=== PATIENT | female | born 1995 | race Caucasian/White ===

== ENCOUNTER 2020-10-19 03:53 | Emergency (ER) | payer OTHER ==
[~2020-10-19] VITALS: Ht 160 cm; Wt 79.4 kg
[2020-10-19 03:58] VITALS: BP 122/80
--- NOTE | 2020-10-19 03:58 | NUR ---
to bed ambulatory
--- NOTE | 2020-10-19 04:03 | NUR ---
Rachel islas in [facility] - 10/19/20 at 0403 by ROSIE PT TAKEN TO BED 11
--- NOTE | 2020-10-19 04:14 | NUR ---
EKG PERFORMED AT BEDSIDE. EKG READS SINUS RHYTHM @ 70
--- NOTE | 2020-10-19 04:14 | NUR ---
EMT AT BEDSIDE DOING EKG
--- NOTE | 2020-10-19 04:20 | NUR ---
25/F BIB SELD COMPLAINING OF GENERALIZED WEAKNESS, SHAKINESS, AND FEELING OF ABOUT TO FAINT. PT VERBALIZED SHE IS . LPM 09/04. PT AAOX4, NO S/SX OF DISTRESS. PT DENIES ANY N/V/D, HEADACHE/DIZZINESS. PT CONNECTED TO MONITORS. DENIES PMH ALLERGY: GERI
--- NOTE | 2020-10-19 04:43 | NUR ---
URINE SAMPLE SEND TO LAB
[2020-10-19 04:48] LABS: APPEARANCE,URINE CLEAR (CLEAR); BILIRUBIN,URINE NEGATIVE (NEGATIVE); BLOOD, URINE NEGATIVE (NEGATIVE); COLOR,URINE YELLOW (YELLOW); LEUKOCYTE ESTERASE ,URINE NEGATIVE (NEGATIVE); NITRITE, URINE NEGATIVE (NEGATIVE); UGLUCOSE NEGATIVE (NEGATIVE)
[2020-10-19 05:17] VITALS: BP 111/64
--- NOTE | 2020-10-19 05:18 | NUR ---
Patient discharged with v/s stable. Written and verbal after care instructions given and explained. Patient verbalized understanding. Ambulatory with steady gait. All questions addressed prior to discharge. Advised to follow up with PMD.
== END 2020-10-19 05:18 | disposition home or self-care (01) ==
LOC: MED 03:53
DX: O21.8 Other vomiting complicating pregnancy (principal); R53.1 Weakness; Z3A.01 Less than 8 weeks gestation of pregnancy; Z88.0 Allergy status to penicillin
CPT/HCPCS: 81003; 81025; 93005; 99284

== ENCOUNTER 2020-12-27 20:55 | Emergency (ER) | payer MEDICAID ==
[~2020-12-27] VITALS: Ht 160 cm; Wt 81.6 kg
[2020-12-27 21:25] VITALS: BP 139/75
--- NOTE | 2020-12-27 21:56 | NUR ---
PT TAKEN TO XRAY FROM JULI HENRIQUEZ
--- NOTE | 2020-12-27 23:32 | NUR ---
PT AMBULATED TO BED 7
--- NOTE | 2020-12-27 23:53 | NUR ---
Dr. Gallo examining patient.
--- NOTE | 2020-12-28 00:10 | NUR ---
Patient assessment completed per ERMD, no nursing interventions required at this time.
[2020-12-28] MEDS ORDERED: ALBU0.0912 IH (00:25)
[2020-12-28 00:30] VITALS: BP 139/75
--- NOTE | 2020-12-28 00:30 | NUR ---
Patient discharged with v/s stable. Written and verbal after care instructions given and explained. Patient alert, oriented and verbalized understanding of instructions. Ambulatory with steady gait. All questions addressed prior to discharge. ID band removed. Patient advised to follow up with PMD. Rx of Proventil HFA MDI given. Patient educated on indication of medication including possible reaction and side effects. Opportunity to ask questions provided and answered.
== END 2020-12-28 00:30 | disposition home or self-care (01) ==
LOC: MED 20:55
DX: R51.9 Headache, unspecified (principal); T50.905A Adverse effect of unspecified drugs, medicaments and biological substances, initial encounter; R06.02 Shortness of breath; H53.9 Unspecified visual disturbance; Y90.9 Presence of alcohol in blood, level not specified
CPT/HCPCS: 71045; 99283

== ENCOUNTER 2021-02-09 20:25 | Emergency (ER) | payer MEDICAID ==
[~2021-02-09] VITALS: Ht 160 cm; Wt 83.0 kg
[~2021-02-09 20:25] MED LIST: ALBU0.0912 IH
[2021-02-09 20:49] VITALS: BP 110/55
--- NOTE | 2021-02-09 21:30 | NUR ---
C/C LLQ ABDOMINAL PAIN THAT RADIATES TO LEFT FLANK X 2 WEEKS. PAIN IS SHARP AND INTERMITTENT, 3/10. DENIES S/SX OF UTI. REPORTS + WHITE DISCHARGE. DENIES N/V/D, FEVER, CHILLS, CP OR SOB. HX: DENIES ALLERGIES: PENICILLINS
[2021-02-09 22:06] LABS: BASOPHILS # (AUTO) 0.1 K/uL (0.00-0.22); BASOPHILS % (AUTO) 0.9 % (0.0-2.0); EOSINOPHILS # (AUTO) 0.1 K/uL (0-0.4); EOSINOPHILS % (AUTO) 1.1 % (0.0-4.0); HEMATOCRIT 39.5 % (36-48); HEMOGLOBIN 13.2 g/dL (12.0-16.0); LYMPHOCYTES # (AUTO) 2.1 K/uL (2.5-16.5); LYMPHOCYTES % (AUTO) 30.8 % (20.5-51.1); MEAN CORPUSCULAR HEMOGLOBIN 30 pg (27-31); MEAN CORPUSCULAR HGB CONC 33 g/dL (33-37); MEAN CORPUSCULAR VOLUME 89.3 fL (80-94); MONOCYTES # (AUTO) 0.6 K/uL (0.8-1.0); MONOCYTES % (AUTO) 8.4 % (1.7-9.3); NEUTROPHILS # (AUTO) 3.9 K/uL (1.8-7.7); NEUTROPHILS % (AUTO) 58.8 % (42.2-75.2); PLATELET COUNT (AUTO) 242 K/uL (140-450); RED BLOOD CELL COUNT(AUTO) 4.43 MIL/uL (4.20-5.40); RED CELL DISTRIBUTION WIDTH 13.6 % (11.6-13.7); WHITE BLOOD COUNT (AUTO) 6.7 K/uL (4.8-10.8)
[2021-02-09 22:43] LABS: ALBUMIN 4.3 g/dL (3.4-5.0); ANION GAP 12.2 (8-16); CARBON DIOXIDE 27.5 mmol/L (21-32); CREATININE 0.7 mg/dL (0.6-1.3); POTASSIUM 3.7 mmol/L (3.5-5.1); TOTAL BILIRUBIN 0.5 mg/dL (0.0-1.0)
[2021-02-09] MEDS ORDERED: NAPR-54 PO (23:44)
[2021-02-09] MEDS ORDERED: KETOROLAC 30 MG/ML VIAL IM ONE (23:45)
[2021-02-10 00:16] VITALS: BP 110/55
== END 2021-02-10 00:16 | disposition home or self-care (01) ==
LOC: MED 20:25
DX: R10.32 Left lower quadrant pain (principal); J45.909 Unspecified asthma, uncomplicated; Z79.899 Other long term (current) drug therapy; Z88.0 Allergy status to penicillin
CPT/HCPCS: 36415; 80053; 81002; 81025; 85025; 96372; 99283; J1885

== ENCOUNTER 2021-02-24 11:35 | Emergency (ER) | payer BC, MEDICAID ==
[~2021-02-24] VITALS: Ht 160 cm; Wt 82.6 kg
[~2021-02-24 11:35] MED LIST changes: +NAPR-54 PO
[2021-02-24 11:50] VITALS: BP 121/75
--- NOTE | 2021-02-24 11:59 | NUR ---
TENT2
[2021-02-24] MEDS ORDERED: NITR100C15 PO (12:59)
[2021-02-24] MEDS ORDERED: PROM118S5 PO (12:59)
[2021-02-24] MEDS ORDERED: IBUP-2213 PO (12:59)
--- NOTE | 2021-02-24 13:29 | NUR ---
Novel collected, handed to Olimpia, CPT>
--- NOTE | 2021-02-24 13:29 | NUR ---
No nursing interventions performed.
--- NOTE | 2021-02-24 13:30 | NUR ---
Patient discharged with v/s stable. Written and verbal after care instructions given and explained. Patient alert, oriented and verbalized understanding of instructions. Ambulatory with steady gait. All questions addressed prior to discharge. ID band removed. Patient advised to follow up with PMD. Rx of Macrobid, Ibuprofen, Promethazine/Dextromethorphan given. Patient educated on indication of medication including possible reaction and side effects. Opportunity to ask questions provided and answered.
== END 2021-02-24 13:30 | disposition home or self-care (01) ==
LOC: MED 11:35
DX: J98.8 Other specified respiratory disorders (principal); Z20.822 Contact with and (suspected) exposure to COVID-19; N39.0 Urinary tract infection, site not specified; R10.2 Pelvic and perineal pain; Z88.0 Allergy status to penicillin; Z79.899 Other long term (current) drug therapy
CPT/HCPCS: 81025; 87086; 99283; U0003

== ENCOUNTER 2021-12-09 23:19 | Emergency (ER) | payer BC, MEDICAID, OTHER ==
[~2021-12-09] VITALS: Ht 160 cm; Wt 88.0 kg
[~2021-12-09 23:19] MED LIST changes: +IBUP-2213 PO; +NITR100C15 PO; +PROM118S5 PO
[2021-12-09 23:34] VITALS: BP 126/75
--- NOTE | 2021-12-10 00:36 | NUR ---
PT AMBULATED TO BED #9
--- NOTE | 2021-12-10 00:42 | NUR ---
26 yo f bib self with c/c of 6/10 epigastric pain xtoday. reports n/v/d xyesterday. pt denies blood in emesis. states all she ate was a cup of noodle soup with some chili in it. abd is soft. bowel sounds active [id number]. states she took pepto this am with no relief. pt placed in gown and is on monitor. denies hx, rx allergy:pcn
[2021-12-10] MEDS ORDERED: ONDANSETRON 4 MG ODT PO ONE (00:55)
[2021-12-10] MEDS ORDERED: ACETAMINOPHEN EXTRA STRENGTH 500 MG TAB PO ONE (00:55)
--- NOTE | 2021-12-10 01:10 | NUR ---
pt ambulated to with steady gait for urine collection.
--- NOTE | 2021-12-10 01:27 | NUR ---
swabs collected and taken to lab.
[2021-12-10] MEDS ORDERED: ONDA-188 SL (02:49)
[2021-12-10 03:06] VITALS: BP 107/50
--- NOTE | 2021-12-10 03:06 | NUR ---
Patient discharged with v/s stable. Written and verbal after care instructions given and explained. Patient alert, oriented and verbalized understanding of instructions. Ambulatory with steady gait. All questions addressed prior to discharge. ID band removed. Patient advised to follow up with PMD. Rx of zofran given. Opportunity to ask questions provided and answered.
== END 2021-12-10 03:06 | disposition home or self-care (01) ==
LOC: MED 23:19
DX: R11.2 Nausea with vomiting, unspecified (principal); Z20.822 Contact with and (suspected) exposure to COVID-19; R19.7 Diarrhea, unspecified; R10.9 Unspecified abdominal pain; Z79.899 Other long term (current) drug therapy; Z79.1 Long term (current) use of non-steroidal anti-inflammatories (NSAID); Z88.0 Allergy status to penicillin
CPT/HCPCS: 81025; 87426; 87804; 99283; Q0162

== ENCOUNTER 2022-12-26 22:33 | Emergency (ER) | payer OTHER ==
[~2022-12-26] VITALS: Ht 160 cm; Wt 83.9 kg
[~2022-12-26 22:33] MED LIST changes: +ONDA-188 SL
[2022-12-26 22:38] VITALS: BP 119/64; PULSE 68; RESP 16; TEMP 98.2; O2SAT 100
--- NOTE | 2022-12-26 22:45 | NUR ---
PATIENT TO LOBBY.
--- NOTE | 2022-12-27 00:14 | NUR ---
PT TAKEN TO ULTRASOUND
[2022-12-27 00:33] LABS: ALBUMIN 3.8 g/dL (3.4-5.0); ANION GAP 13.9 (8-16); CREATININE 0.6 mg/dL (0.6-1.3); POTASSIUM 3.9 mmol/L (3.5-5.1); TOTAL BILIRUBIN 0.2 mg/dL (0.0-1.0)
[2022-12-27 00:42] LABS: BASOPHILS # (AUTO) 0.1 K/uL (0.00-0.22); BASOPHILS % (AUTO) 0.8 % (0.0-2.0); EOSINOPHILS # (AUTO) 0.1 K/uL (0-0.4); HEMATOCRIT 36.7 % (36-48); HEMOGLOBIN 12.6 g/dL (12.0-16.0); LYMPHOCYTES # (AUTO) 2.1 K/uL (2.5-16.5); LYMPHOCYTES % (AUTO) 30.8 % (20.5-51.1); MEAN CORPUSCULAR HEMOGLOBIN 31 pg (27-31); MEAN CORPUSCULAR HGB CONC 35 g/dL (33-37); MEAN CORPUSCULAR VOLUME 88.9 fL (80-94); MONOCYTES # (AUTO) 0.7 K/uL (0.8-1.0); MONOCYTES % (AUTO) 9.9 % (1.7-9.3); NEUTROPHILS # (AUTO) 3.9 K/uL (1.8-7.7); NEUTROPHILS % (AUTO) 56.5 % (42.2-75.2); PLATELET COUNT (AUTO) 245 K/uL (140-450); RED BLOOD CELL COUNT(AUTO) 4.13 MIL/uL (4.20-5.40); RED CELL DISTRIBUTION WIDTH 13.3 % (11.6-13.7); WHITE BLOOD COUNT (AUTO) 6.8 K/uL (4.8-10.8)
--- NOTE | 2022-12-27 00:58 | NUR ---
PT RETURN TO ER BED 9
--- NOTE | 2022-12-27 00:59 | NUR ---
PT RETURN FROM US
[2022-12-27 01:46] VITALS: BP 100/52; PULSE 77; RESP 16; TEMP 97.3; O2SAT 98
--- NOTE | 2022-12-27 02:45 | NUR ---
Patient asleep and comfortable in bed. at bedside. No complaints of pain. No signs of distress.
[2022-12-27] MEDS ORDERED: METR0.752 VG (04:01)
--- NOTE | 2022-12-27 04:04 | NUR ---
As per Dr. Turner, patient may have oral fluid intake. Patient given orange juice as per patient request.
--- NOTE | 2022-12-27 04:30 | NUR ---
Discharged by Dr. Turner.
== END 2022-12-27 04:30 | disposition home or self-care (01) ==
LOC: MED 22:33
DX: O26.891 Other specified pregnancy related conditions, first trimester (principal); R10.9 Unspecified abdominal pain; Z79.899 Other long term (current) drug therapy; Z88.0 Allergy status to penicillin; Z3A.01 Less than 8 weeks gestation of pregnancy
CPT/HCPCS: 36415; 76801; 80053; 81025; 85025; 87210; 99284; Q0092

== ENCOUNTER 2023-04-30 00:12 | Observation (INO) | payer OTHER ==
[~2023-04-30] VITALS: Ht 160 cm; Wt 93.0 kg
[~2023-04-30 00:12] MED LIST changes: +METR0.752 VG
[2023-04-30 00:54] VITALS: BP 124/72; PULSE 68; RESP 18; TEMP 98.4
== END 2023-04-30 01:51 | disposition home or self-care (01) ==
LOC: MLD 00:12
PROVIDERS: ADMIT Obstetrics & Gynecology; ATTEND Obstetrics & Gynecology
DX: O26.892 Other specified pregnancy related conditions, second trimester (principal); R10.2 Pelvic and perineal pain; R10.9 Unspecified abdominal pain; O99.891 Other specified diseases and conditions complicating pregnancy; M54.9 Dorsalgia, unspecified; Z3A.23 23 weeks gestation of pregnancy; Z88.0 Allergy status to penicillin
CPT/HCPCS: 81000; G0378